=== PATIENT | female | born 1975 | race Caucasian/White ===

== ENCOUNTER 2020-04-13 10:04 | Outpatient (CLI) | payer OTHER, SELFPAY ==
--- NOTE | ~2020-04-13 | XR_ITS ---
XR foot RT 2V DATE: 04/13/2020 10:46 INDICATION: Bilateral foot pain TECHNIQUE: AP and lateral views COMPARISON: None FINDINGS: Mild plantar calcaneal enthesopathy. No fracture, dislocation, periosteal reaction or bone destruction. IMPRESSION: Mild plantar calcaneal enthesopathy Reviewed, dictated and finalized at location [facility].
--- NOTE | ~2020-04-13 | XR_ITS ---
XR sacroiliac joints min 3V DATE: 04/13/2020 10:46 INDICATION: Low back pain. No injury. TECHNIQUE: AP and bilateral oblique views COMPARISON: None FINDINGS: Normal alignment at the sacroiliac joints. No fracture or dislocation is evident. No erosiv e change or ankylosis. Impression scoliosis and degenerative disc disease of lumbar spine. IUD overlies the right side of the pelvis. IMPRESSION: Dextroscoliosis and degenerative disc disease of the lumbar spine Reviewed, dictated and finalized at [facility]. Reviewed, dictated and finalized at location A. Impression scoliosis and degenerative disc disease of lumbar spine. IUD overlies the right side of the pelvis.
--- NOTE | ~2020-04-13 | XR_ITS ---
XR foot LT 2V DATE: 04/13/2020 10:46 INDICATION: Bilateral foot pain TECHNIQUE: AP and lateral views COMPARISON: None FINDINGS: Mild plantar calcaneal enthesopathy without any associated erosive change or periosteal vivian ction. No fracture, dislocation, periosteal reaction or bone destruction. IMPRESSION: Plantar calcaneal enthesopathy Reviewed, dictated and finalized at location A.
== END 2020-04-13 10:05 | disposition home or self-care (01) ==
LOC: ANHIMG 10:14
PROVIDERS: PCP Family Medicine; Visit Provider Physician Assistant
DX: M25.50 Pain in unspecified joint (principal); M51.36 Other intervertebral disc degeneration, lumbar region; M77.32 Calcaneal spur, left foot
CPT/HCPCS: 72202; 73620

== ENCOUNTER 2020-06-13 06:41 | Outpatient (NON) | payer OTHER, SELFPAY ==
[2020-06-13 19:13] LABS: SARS-CoV-2 RNA PCR Positive
== END 2020-06-13 06:42 ==
LOC: ANHCOVIDDT 06:41
PROVIDERS: PCP Family Medicine; Visit Provider Physician Assistant Medical
DX: U07.1 COVID-19 (principal)
CPT/HCPCS: 87635; C9803; U0003

== ENCOUNTER 2022-12-01 09:06 | Outpatient (CLI) | payer OTHER, SELFPAY ==
--- NOTE | 2022-12-01 11:00 | NEURO_ITS ---
IMPRESSION: Patient reports a history of numbness in the left hand. # Moderate left Carpal Tunnel Syndrome. # Normal EMG. # Clinical correlation recommended Nerve Conduction Studies Anti Sensory Summary Table Stim Site NR Peak (ms) P-T Amp (?V) Site1 Site2 Delta-P (ms) Dist (cm) Ry (m/s) Left Median Anti Sensory (2-3nd Digit) Wrist 5.6 4.0 Wrist 2-3nd Digit 5.6 14.0 25 Wrist 6.4 4.6 Wrist 2-3nd Digit 5.6 14.0 25 Left Radial Anti Sensory (Base 1st Digit) Wrist 1.6 30.2 Wrist Base 1st Digit 1.6 0.0 Left Ulnar Anti Sensory (5th Digit) Wrist 2.3 77.9 Wrist 5th Digit 2.3 14.0 61 Motor Summary Table Stim Site NR Onset (ms) O-P Amp (mV) Site1 Site2 Delta-0 (ms) Dist (cm) Ry (m/s) Left Median Motor (Abd Poll Brev) Wrist 7.3 3.4 Elbow Wrist 4.3 21.0 49 Elbow 11.6 2.8 Left Ulnar Motor (Abd Dig Minimi) Wrist 2.2 5.4 A Elbow Wrist 5.2 30.0 58 A Elbow 7.4 4.8 B Elbow Wrist 3.3 20.0 61 B Elbow 5.5 4.7 F Wave Studies NR F-Lat (ms) L-R F-Lat (ms) Left Median (Mrkrs) (Abd Poll Brev) 30.00 Left Ulnar (Mrkrs) (Abd Dig Min) 28.52 EMG Side Muscle Nerve Root Ins Act Fibs Amp Dur Recrt Comment Left 1stDorInt Ulnar C8-T1 Nml Nml Nml Nml Nml Left Ext Indicis Radial (Post Int) C7-8 Nml Nml Nml Nml Nml Left Ext Digitorum Radial (Post Int) C7-8 Nml Nml Nml Nml Nml Left BrachioRad Radial C5-6 Nml Nml Nml Nml Nml Left PronatorTeres Median C6-7 Nml Nml Nml Nml Nml Left Abd Poll Brev Median C8-T1 Nml Nml Nml Nml Nml MTDD
== END 2022-12-01 09:07 | disposition home or self-care (01) ==
LOC: ANHNEURO 09:07
PROVIDERS: PCP Family Medicine; Visit Provider Physician Assistant
DX: R20.0 Anesthesia of skin (principal); G56.02 Carpal tunnel syndrome, left upper limb
CPT/HCPCS: 95886; 95909